=== PATIENT | female | born 1955 | race Hispanic/Latino ===

== ENCOUNTER → 2017-10-23 | Day surgery (SDC) | payer OTHER ==
[~2017-10-23] MED LIST: BIOTIN; CALCIUM + D; COLLAGEN; FENTANYL CITRATE/PF 100MCG/2 ML INJ ONE; GLUCOSAMINE/CHONDRO; HYOSCYAMINE SULFATE 0.5 MG/ML AMP ONE; LIDOCAINE HCL 2% LOCAL INJ 5 ML SDV VIAL INJ ONE; LIPITOR20 MG PO; LISINOPRIL10 MG PO; MAGNESIUM; MELOXICAM7.5 MG PO; MIDAZOLAM HCL 2 MG/2 ML VIAL ONE; MULTIVITAMINS1 EAC8; OSTEO BI-FLEX1 EAC2; PROPOFOL IV EMULSION 10 MG/ML 50 ML VIAL ONE; TYLENOL; VITAMIN B12
--- NOTE | 2017-10-23 19:27 | Operative Report ---
DATE OF PROCEDURE: October 23, 2017 REFERRING PHYSICIAN: Dr. Miquel Saucedo PROCEDURES PERFORMED 1. Esophagogastroduodenoscopy with biopsies. 2. Colonoscopy with polypectomy and biopsies. INDICATIONS FOR EGD: Dyspepsia. INDICATIONS FOR COLONOSCOPY: Colorectal cancer screening, personal history of colon polyps, mother and brother with colon cancer. MEDICATION: Patient was done under MAC. Please see anesthesiologist's note. PROCEDURE: With the patient in the left lateral decubitus position, the flexible fiberoptic Olympus gastroscope was introduced into the esophagus under direct visualization without any difficulty. There was some patchy erythema noted in the distal esophagus. A minute nodule was noted at GE junction that was biopsied. The scope was then advanced with ease into the stomach. Mucosa overlying the antrum and the body revealed some patchy erythema and mild to moderate edema, and biopsies were obtained and sent to stain for H. pylori. Several hyperplastic appearing polyps were noted in the body and some were partially excised with the cold biopsy forceps. The pylorus was of normal contour and shape. It was intubated with ease. The scope was advanced all the way to the 2nd portion of the duodenum. The scope was then withdrawn slowly. Mucosa overlying the proximal 2nd portion and the duodenal bulb appeared to be within normal limits. The scope was then withdrawn back into the stomach and retroflexed. The mucosa overlying the fundus and the cardia appeared to be within normal limits. The scope was then straightened out. The stomach was decompressed. The scope was subsequently withdrawn. Patient tolerated the procedure well. IMPRESSION 1. Mild distal esophagitis. 2. Minute nodule, gastroesophageal junction, biopsied. 3. Gastritis, biopsied. Biopsies sent to stain for Helicobacter pylori. 4. Gastric polyps, body, hyperplastic appearing, some partially excised with the cold biopsy forceps. PLAN: Follow up histology. Initiate Protonix 40 mg 1 p.o. q.a.m. a.c. Patient was then turned around. After adequate lubrication of the anal canal, a flexible fiberoptic Olympus colonoscope was inserted into the rectum with ease and advanced all the way to the cecum. There was some retained fecal material in the right colon, but visualization was good. A minute polyp was hot biopsied from the cecum. The ascending colon grossly appeared to be within normal limits. There was an approximately 1 cm submucosal polypoid lesion suspicious for a lipoma that was biopsied. An additional polyp approximately 8 mm sessile was snared from the transverse colon. The descending grossly appeared to be within normal limits. Diverticular disease was noted to involve the sigmoid colon. One polyp was hot biopsied from the rectum. The scope was then retroflexed into the distal rectum, and the area around the dentate line appeared to be within normal limits. The scope was then straightened out. It was subsequently withdrawn. Patient tolerated the procedure well. IMPRESSION 1. Cecal polyp, hot biopsied. 2. Transverse colon polyp, approximately 1 cm in size, suspicious for lipoma. Biopsies obtained. 3. Transverse colon polyps, snared. 4. Diverticulosis. 5. Rectal polyp, hot biopsied. PLAN: Follow up histology. Initiate high-fiber and low-fat diet. Initiate high-fiber supplement. Patient will need a followup colonoscopy in 2 years. Job#: [id number] cc:MIQUEL SAUCEDO MD
== END | disposition home or self-care (01) ==
LOC: ENDO 09:53
PROVIDERS: ATTEND Internal Medicine Gastroenterology
DX: Z12.11 Encounter for screening for malignant neoplasm of colon (principal); D12.0 Benign neoplasm of cecum; D12.3 Benign neoplasm of transverse colon; K62.1 Rectal polyp; K31.7 Polyp of stomach and duodenum; K29.50 Unspecified chronic gastritis without bleeding; K21.0 Gastro-esophageal reflux disease with esophagitis; K57.30 Diverticulosis of large intestine without perforation or abscess without bleeding; K59.00 Constipation, unspecified; K44.9 Diaphragmatic hernia without obstruction or gangrene; K64.8 Other hemorrhoids; G47.33 Obstructive sleep apnea (adult) (pediatric); I10 Essential (primary) hypertension; E78.00 Pure hypercholesterolemia, unspecified; F41.9 Anxiety disorder, unspecified; Z88.6 Allergy status to analgesic agent; Z01.810 Encounter for preprocedural cardiovascular examination; Z68.39 Body mass index [BMI] 39.0-39.9, adult; Z80.0 Family history of malignant neoplasm of digestive organs
CPT/HCPCS: 43239; 45380; 45384; 45385; 93005; J1980; J2001; 45378

== ENCOUNTER → 2017-12-16 | Outpatient (CLI) | payer OTHER ==
[~2017-12-16] MED LIST changes: -FENTANYL CITRATE/PF 100MCG/2 ML INJ ONE; -HYOSCYAMINE SULFATE 0.5 MG/ML AMP ONE; -LIDOCAINE HCL 2% LOCAL INJ 5 ML SDV VIAL INJ ONE; -MIDAZOLAM HCL 2 MG/2 ML VIAL ONE; -PROPOFOL IV EMULSION 10 MG/ML 50 ML VIAL ONE
== END ==
LOC: MAMMO 09:56
PROVIDERS: ATTEND Internal Medicine
DX: Z12.31 Encounter for screening mammogram for malignant neoplasm of breast (principal)
CPT/HCPCS: 77067

== ENCOUNTER → 2018-05-16 | Outpatient (CLI) | payer OTHER, MEDICARE | LOC: RAD 15:22 | PROVIDERS: ATTEND Internal Medicine | DX: I82.499 Acute embolism and thrombosis of other specified deep vein of unspecified lower extremity (principal) | CPT/HCPCS: 93970 ==

== ENCOUNTER 2018-07-04 05:23 | Inpatient (IN) | payer MEDICARE, OTHER ==
--- NOTE | 2018-07-01 11:41 | Diagnostic Imaging Report ---
EXAMINATION: CHEST 2 VIEWS INDICATION: Pre-op COMPARISON: None FINDINGS: TUBES and LINES: None. LUNGS: Lungs are well inflated. There is a focal patchy opacity in the left lower lung peripherally. There are mild patchy opacities of the left greater than right lung base, likely atelectasis. There is no evidence of lobar pneumonia or pulmonary edema. PLEURA: No pleural effusion or pneumothorax. HEART AND MEDIASTINUM: The cardiomediastinal silhouette is unremarkable. BONES AND SOFT TISSUES: No acute osseous abnormality. Degenerative changes of bilateral shoulders. UPPER ABDOMEN: No free air under the diaphragm. IMPRESSION: No acute radiographic abnormality. Focal patchy opacity in the left lower lung may represent atelectasis. However given the focal appearance, follow-up chest radiograph in 6-8 weeks is recommended to assess for resolution and exclude underlying pulmonary nodule. Signed by: Dr. Shima Echevarria MD on 07/01/2018 11:37 AM
[~2018-07-04] VITALS: Ht 160 cm; Wt 97.1 kg
[~2018-07-04 05:23] MED LIST changes: +FIBER GUMMIES PO; +FISH OIL 1,0001 EAC2 PO; +PANTOPRAZOLE SO40 MG PO; +TRIAMTERENE-HCTZ1 EA PO
--- OUTSIDE RECORDS SUMMARY | 2018-07-04 05:26 | XMS REPORT ---
Author Author [facility] Address Unknown Phone Unavailable Care Team Providers Care Resource Manager Name Role Phone PAUL ALBERTO Unavailable Unavailable MIQUEL SAUCEDO Unavailable Unavailable Problems This patient has no known problems. Allergies, Adverse Reactions, Alerts This patient has no known allergies or adverse reactions. Medications This patient has no known medications. Results Test Description Test Time Test Comments Text Results Atomic Results Result Comments CHEST 2 VIEWS 2018-07-01 11:33:00 [place] [address] Patient Name: NANCY MARAVILLA MR #: [id number] : 1955 Age/Sex: 63/F Req #: [id number] Adm Physician: Ordered by: PAUL ALBERTO MD Report #: [id number] Location: OR Room/Bed: Procedure: [id number] DX/CHEST 2 VIEWS Exam Date: Exam Time: REPORT STATUS: Signed EXAMINATION: CHEST 2 VIEWS INDICATION: Pre-op COMPARISON: None FINDINGS: TUBES and LINES: None. LUNGS: Lungs are well inflated. There is a focal patchy opacity in the left lower lung peripherally. There are mild patchy opacities of the left greater than right lung base, likely atelectasis. There is no evidence of lobar pneumonia or pulmonary edema. PLEURA: No pleural effusion or pneumothorax. HEART AND MEDIASTINUM: The cardiomediastinal silhouette is unremarkable. BONES AND SOFT TISSUES: No acute osseous abnormality. Degenerative changes of bilateral shoulders. UPPER ABDOMEN: No free air under the diaphragm. IMPRESSION: No acute radiographic abnormality. Focal patchy opacity in the left lower lung may represent atelectasis. However given the focal appearance, follow-up chest radiograph in 6-8 weeks is recommended to assess for resolution and exclude underlying pulmonary nodule. Signed by: Dr. Bravo Terrell MD on 07/01/2018 11:37 AM Dictated By: BRAVO TERRELL MD Electro nically Signed By: BRAVO TERRELL MD on 07/01/18 1137 Transcribed By: CHANTAL on 07/01/18 1137 COPY TO: PAUL ALBERTO MD MAMMOGRAPHY DIGITAL SCR BILAT 2017-12-16 10:52:00 [place] [address] Patient Name: NANCY MARAVILLA MR #: [id number] : 1955 Age/Sex: 62/F Req #: [id number] Adm Physician: Ordered by: MIQUEL SAUCEDO MD Report #: [id number] Location: MAMMO Room/Bed: Procedure: [id number] MG/MAMMOGRAPHY DIGITAL SCR BILAT Exam Date: 12/16/17 Exam Time: 1025 REPORT STATUS: Signed #[id number] - MGSCRBIL #BILATERAL DIGITAL SCREENING MAMMOGRAM WITH CAD: 12/16/2017 CLINICAL: Routine screening. Comparison is made to exams dated: 08/20/2016 mammogram and 08/05/2015 mammogram - [facility]. The tissue of both breasts is heterogeneously dense. This may lower the sensitivity of mammography. Current study was also evaluated with a Computer Aided Detection (CAD) system. No significant masses, calcifications, or other findings are seen in either breast. There has been no significant interval change. IMPRESSION: BENIGN There is no mammographic evidence of malignancy. A 1 year screening mammogram is recommended. The patient will be notified by letter of the results. Elza ray/chan:12/21/2017 10:29:53 Smoke Control Supervisor: uSe DE LA FUENTE)(Arpan), [facility] letter sent: Normal Exam Mammogram BI-RADS: 2 Benign Dictated By: ELZA COONEY MD 1029 Transcribed By: CHAN on 12/21/17 1029 COPY TO: MIQUEL SAUCEDO MD
[2018-07-04] MEDS ORDERED: CELECOXIB 200 MG CAP ONE (05:39)
[2018-07-04] MEDS ORDERED: CEFAZOLIN SOD 2 GM/D5W 50ML 50 ML IV ONE (05:40)
[2018-07-04] MEDS ORDERED: GABAPENTIN 300 MG CAP ONE (05:40)
[2018-07-04] MEDS ORDERED: DEXAMETHASONE SOD PHOS 10 MG/1 ML VIAL ONE (05:40)
[2018-07-04] MEDS ORDERED: SODIUM CHLORIDE 0.9% 500ML 500 ML ONE (06:23)
[2018-07-04] MEDS ORDERED: VANCOMYCIN HCL 1,000 MG ONE (06:23)
[2018-07-04] MEDS ORDERED: BACITRACIN 50,000 UNIT VIAL ONE (06:24)
[2018-07-04] MEDS ORDERED: TRANEXAMIC ACID 1,000 MG/10 ML ML ONE (06:24)
[2018-07-04] MEDS ORDERED: BUPIVACAINE 7.5MG/ML /DEXTROSE 82.5MG/ML 2 ML AMP INJ ONE (06:27)
[2018-07-04] MEDS ORDERED: ROPIVACAINE 246.25 MG, EPINEPHRINE HCL 1:1000 1ML 0.5 MG, CLONIDINE HCL 0.08 MG, KETORO... INJ ONE ×5 (06:30)
[2018-07-04] MEDS: SODIUM CHLORIDE 0.9% 1000ML 1,000 ML IV SCH ×2 (09:27→21:47)
[2018-07-04] MEDS ORDERED: DIPHENHYDRAMINE HCL INJ 50 MG/ML VIAL IM/IV PRN (09:30)
[2018-07-04] MEDS ORDERED: ACETAMINOPHEN 650 MG SUPP PR PRN (09:30)
[2018-07-04] MEDS ORDERED: HYDROCODONE/APAP 5MG-325MG TAB PO PRN (09:30)
[2018-07-04] MEDS ORDERED: HYDROCODONE/APAP 7.5MG-325MG 1 EA TAB PO PRN (09:30)
[2018-07-04] MEDS ORDERED: ZOLPIDEM TARTRATE 5 MG TAB PO PRN (09:30)
[2018-07-04] MEDS ORDERED: ONDANSETRON HCL INJ 2MG/ML 2ML 2 MG/ML VIAL IV PRN (09:30)
[2018-07-04] MEDS ORDERED: DOCUSATE SODIUM 100 MG CAP PO PRN (09:30)
[2018-07-04] MEDS ORDERED: KETOROLAC TROMETHAMINE 30 MG/ML VIAL IV PRN ×2 (09:30→13:45)
[2018-07-04] MEDS ORDERED: PROMETHAZINE HCL (IM) 25 MG/ML VIAL INJ PRN (09:30)
--- NOTE | 2018-07-04 10:47 | Diagnostic Imaging Report ---
Exam: Pelvis, frontal view History: Left hip replacement Comparison: None. Findings: See impression Impression: Status post total left hip replacement with intact and appropriately positioned acetabular and femoral components. Subcutaneous gas and overlying skin ernesto partially visualized. No periprosthetic displaced fracture. Advanced degenerative arthrosis of the right hip incidentally noted. Signed by: Dr. Fred Spence M.D. on 07/04/2018 10:43 AM
[2018-07-04 11:00] VITALS: BP 111/68
--- NOTE | 2018-07-04 11:05 | NUR ---
RECIEVED PATIENT TO ROOM AAO X3, UPDATED ON PLAN OF CARE, VOICED UNDERSTANDING, DENIES PAIN, WOUND VAC TO LEFT HIP INTACT, IV INFUSING TO RIGHT WRIST 20 GAUGE, FOOT PUMPS BILATERALLY FEET, BED LOCKED LOW POSITION, CALL LIGHT IN REACH, WILL CONTINUE TO MONITOR.
[2018-07-04 11:26] VITALS: BP 111/68
[2018-07-04] MEDS: ACETAMINOPHEN 1000 MG/100 ML IV SCH ×2 (13:21→18:15)
[2018-07-04] MEDS: CEFAZOLIN SOD 1 GM/NS 50ML 50 ML IV SCH ×2 (13:55→21:47)
[2018-07-04 14:54] VITALS: BP 111/68
--- NOTE | 2018-07-04 16:23 | Consultation ---
DATE OF CONSULTATION: Internal Medicine Consultation HISTORY OF PRESENT ILLNESS: A 63-year-old female with past medical history positive for hypertension, hyperlipidemia, gastroesophageal reflux disease, sleep apnea, obesity, came to the hospital for an elective left total hip arthroplasty due to severe osteoarthritis. Internal medicine consultation requested by Dr. Kenney for management of her medical condition. REVIEW OF SYSTEMS: CARDIOVASCULAR: No chest pain or palpitation. RESPIRATORY: No shortness of breath. No cough. GASTROINTESTINAL: No nausea. No vomiting. No diarrhea. GENITOURINARY: No urinary frequency. No dysuria. PAST MEDICAL HISTORY: Hypertension, hyperlipidemia, gastroesophageal reflux disease, sleep apnea, obesity. SOCIAL HISTORY: She does not smoke. She does not drink. ALLERGIES: ALLERGIC TO CODEINE. PHYSICAL EXAMINATION: HEART: Showed regular rhythm. Normal murmur or added sound. LUNGS: Clear bilaterally. ABDOMEN: Soft. EXTREMITIES: Show incision on the left hip. No evidence of any edema on both lower extremities. FINAL IMPRESSION: 1. Essential hypertension. 2. Hyperlipidemia. 3. Osteoarthritis, status post left total hip arthroplasty. 4. Gastroesophageal reflux disease. 5. Obstructive sleep apnea and obesity. PLAN OF TREATMENT: Continue cefazolin 1 g IV q.8 hours. Continue normal saline at 100 mL/hour. Tylenol 1000 mg q.6 hours as needed. Continue every 6 hours as needed, Zofran 4 mg IV q.4 to 6 hours as needed for vomiting, lisinopril 40 mg daily, Tylenol 650 mg p.o. q.4 hours as needed, Colace 100 mg twice a day, promethazine 12.5 mg q.6 hours as needed, Protonix 40 mg daily, twice a day, [place] 1 tablet q.4 hours as needed for more severe pain, Ambien 5 mg at night p.r.n. for sleep, Dyazide 1 tab daily, Celebrex 200 mg twice a day, continue Lipitor 20 mg daily, Toradol 30 mg IV q.6 hours as needed for severe pain. I am going to order a CBC, BMP. to follow the case along with you. Also, Physical Therapy will be consulted with the restrictions specified by Dr. Kenney. Diet; low-salt, low-cholesterol diet. MD ALICE Curran/GODFREY /[id number]
[2018-07-04 16:31] VITALS: BP 110/62
[2018-07-04] MEDS ORDERED: CELECOXIB 100 MG CAP PO SCH (17:00)
[2018-07-04] MEDS: CELECOXIB 200 MG CAP PO SCH (18:15)
[2018-07-04] MEDS: ASPIRIN 325 MG TAB PO SCH (18:15)
[2018-07-04] MEDS ORDERED: MIDAZOLAM HCL 2 MG/2 ML VIAL ONE (19:34)
[2018-07-04] MEDS ORDERED: FENTANYL CITRATE/PF 100MCG/2 ML INJ ONE (19:34)
[2018-07-04] MEDS ORDERED: PROPOFOL IV EMULSION 10 MG/ML 20 ML VIAL ONE (19:56)
[2018-07-04] MEDS ORDERED: PHENYLEPHRINE HCL 1% 10 MG/ML VIAL ONE (19:56)
[2018-07-04] MEDS ORDERED: EPHEDRINE SULFATE INJ 50 MG/10 ML SYR ONE (19:56)
[2018-07-04] MEDS ORDERED: LIDOCAINE HCL 2% LOCAL INJ 5 ML SDV VIAL INJ ONE (19:56)
[2018-07-04] MEDS ORDERED: ONDANSETRON HCL INJ 2MG/ML 2ML 2 MG/ML VIAL ONE (19:56)
[2018-07-04 20:00] VITALS: BP 130/70
--- NOTE | 2018-07-04 20:00 | NUR ---
pt received. pt assessed. no ss of distress noted. no co pain at time. left hip wound vac cdi. will cont to follow poc. call wu within reach.
[2018-07-04] MEDS ORDERED: ATORVASTATIN 20 MG TAB PO SCH (21:00)
--- NOTE | 2018-07-04 22:00 | NUR ---
assisted pt up to bedside commode and back to bed. no ss of distress noted. call wu within reach.
[2018-07-05] VITALS: BP 103/57
[2018-07-05] MEDS: ACETAMINOPHEN 1000 MG/100 ML IV SCH ×2 (00:24→05:14)
[2018-07-05 04:00] VITALS: BP 101/62
--- NOTE | 2018-07-05 04:08 | NUR ---
pt resting. no ss of distress noted. call wu within reach.
[2018-07-05] MEDS: SODIUM CHLORIDE 0.9% 1000ML 1,000 ML IV SCH (05:14)
[2018-07-05] MEDS: CEFAZOLIN SOD 1 GM/NS 50ML 50 ML IV SCH (06:03)
--- NOTE | 2018-07-05 06:03 | NUR ---
assisted pt up to bedside commode and back to bed. no ss of distress noted. call wu within reach.
[2018-07-05 07:08] LABS: BASOPHILS % 0.1 % (0.0-1.0); HEMATOCRIT 32.7 % (34.2-44.1); HEMOGLOBIN 10.4 g/dL (12.0-16.0); LYMPHOCYTES # (AUTO) 2.1 (1.0-3.2); LYMPHOCYTES % 12.1 % (18.0-39.1); MEAN CORPUSCULAR HEMOGLOBIN 29.1 pg (28-32); MEAN CORPUSCULAR HGB CONC 31.8 g/dL (31-35); MEAN CORPUSCULAR VOLUME 91.6 fL (81-99); MONOCYTES # (AUTO) 1.5 (0.2-0.8); NEUTROPHILS # (AUTO) 13.3 (2.1-6.9); NEUTROPHILS % 78.2 % (38.7-80.0); PLATELET COUNT 294 x10e3/uL (140-360); RED BLOOD COUNT 3.57 x10e6/uL (3.6-5.1); RED CELL DISTRIBUTION WIDTH 15.2 % (11.7-14.4)
[2018-07-05 08:18] VITALS: BP 104/59
[2018-07-05 08:45] LABS: LYMPHOCYTES % (MANUAL) 11 % (19-48); MONOCYTES % (MANUAL) 10 % (3.4-9.0); NEUTROPHILS % (MANUAL) 79 % (40-74)
[2018-07-05] MEDS: CELECOXIB 200 MG CAP PO SCH (09:00)
[2018-07-05] MEDS ORDERED: PANTOPRAZOLE SOD 40 MG TABEC PO SCH (09:00)
[2018-07-05] MEDS ORDERED: TRIAMTERENE/HCTZ 37.5-25 MG TAB PO SCH (09:00)
[2018-07-05] MEDS: ASPIRIN 325 MG TAB PO SCH (09:00)
[2018-07-05] MEDS ORDERED: LISINOPRIL 10 MG TAB PO SCH (09:00)
[2018-07-05] MEDS ORDERED: LISINOPRIL 20 MG TAB PO SCH (09:00)
[2018-07-05] MEDS ORDERED: ATORVASTATIN 20 MG TAB PO SCH (09:00)
[2018-07-05 09:12] LABS: ANION GAP 14.3 mmol/L (8-16); BLOOD UREA NITROGEN 28 mg/dL (7-26); BUN/CREATININE RATIO 32 (6-25); CALCIUM 8.3 mg/dL (8.4-10.2); CARBON DIOXIDE 22 mmol/L (22-29); CHLORIDE 102 mmol/L (98-107); CREATININE, SERUM 0.88 mg/dL (0.57-1.11); EST GLOMERULAR FILTRATION RATE > 60 ML/MIN (60-); GLUCOSE 129 mg/dL (74-118); POTASSIUM 4.3 mmol/L (3.5-5.1); SODIUM 134 mmol/L (136-145)
[2018-07-05] MEDS ORDERED: ASPIRIN325 MG PO (09:23)
[2018-07-05 09:28] VITALS: BP 104/59
[2018-07-05] MEDS ORDERED: ACETAMINOPHEN 1000 MG/100 ML IV PRN (09:30)
--- NOTE | 2018-07-05 09:40 | NUR ---
LAMAR RENDON WITH MD ALBERTO INTO SEE PT, DISCUSSED DISCHARGE INSTRUCTIONS, PT VERBALIZED UNDERSTANDING, PT NOW AMBULATING IN HALLWAY WITH PHYSICAL THERAPY
--- NOTE | 2018-07-05 09:46 | NUR ---
MD ALBERTO INTO SEE PT, DISCUSSED POC
[2018-07-05] MEDS ORDERED: HYDROCODON-ACE1 EA15 PO (11:10)
--- NOTE | 2018-07-05 11:26 | Progress Note ---
DATE: Internal Medicine Progress Note SUBJECTIVE: The patient is doing well. No significant complaint. PHYSICAL EXAMINATION: VITAL SIGNS: Blood pressure is 104/59, temperature 97.2, heart rate 78 per minute, respiratory rate 20 per minute, oxygen saturation 94%. HEART: Show regular rhythm. Normal S1, S2 sound. LUNGS: Clear bilaterally. ABDOMEN: Soft. EXTREMITIES: Show an incision on the left hip. LABORATORY DATA: CBC; white blood count 16,970, hemoglobin 10.4, hematocrit 32.7, platelet count 294,000. Chemistries pending. IMPRESSION: 1. Status post left hip arthroplasty. 2. Hypertension. 3. Hyperlipidemia. 4. Leukocytosis. 5. Gastroesophageal reflux disease. 6. Sleep apnea. 7. Obesity. PLAN OF TREATMENT: We are going to repeat a CBC tomorrow again due to the elevated white blood count. I am going to continue with physical, occupational therapy. Continue Tylenol 1000 mg every 6 hours IV or 650 mg q.4 hours as needed for pain or fever, [place] q.4 hours as needed, Ambien 5 mg at night p.r.n. for sleep, Toradol 30 mg IV q.6 hours as needed and Celebrex 200 mg twice a day, Lipitor 20 mg daily, Benadryl 12.5 mg IV q.6 hours as needed, Zofran 4 mg IV q.6 hours as needed, lisinopril 40 mg daily, Colace 100 mg twice a day, promethazine 12.5 mg q.6 hours as needed, Protonix 40 mg daily. MD ALICE Curran/GODFREY /[id number]
[2018-07-05 12:01] VITALS: BP 102/61
[2018-07-05] MEDS ORDERED: ONDANSETRON HCL 4 MG ORAL DISINTEGRATING TAB PO PRN (12:30)
--- NOTE | 2018-07-05 13:31 | NUR ---
DISCHARGE INSTRUCTIONS REVIEWED, PT VERBALIZED UNDERSTANDING, AWAITING RIDE
--- NOTE | 2018-07-05 14:26 | NUR ---
WHEELED OFF UNIT VIA WC FOR DISCHARGE, NO CHANGE IN CONDITION
--- NOTE | 2018-07-05 16:18 | NUR ---
Met with pt and family at bedside. Pt signed choice letter for HH per Dr. Kenney's office. [facility] and [facility] already delivered and is in her room. [facility] [phone] to follow her. BENJIE cofirmed with Lisa at [facility]. They are scheduled to see her tomorrow.
--- NOTE | 2018-07-05 16:28 | Operative Report ---
DATE OF PROCEDURE: 07/04/2018 SURGEON: Fred Kenney MD NETWORK SYSTEMS ADMINISTRATOR: Maxwell Toussaint, certified PA. PREOPERATIVE DIAGNOSIS: Osteoarthritis, left hip. POSTOPERATIVE DIAGNOSIS: Osteoarthritis, left hip. PROCEDURE: Left total hip arthroplasty. INDICATIONS: The patient is a 63-year-old lady with severe arthritis in both hips. The hips are virtually ankylosed. The findings and options have been discussed. The patient presented to me wanting to schedule hip replacement surgery. She would like to have the left side done first. The risks and benefits of the procedure have been discussed in detail. The implants, the hospital stay and the recovery have all been explained. She states she understands and wishes to proceed. PROCEDURE IN DETAIL: The patient was brought to the operating room and given a general anesthetic. She received prophylactic antibiotics and tranexamic acid in the holding area. She was positioned in the right lateral decubitus position. Due to her body mass index of nearly 40, added time and personnel was necessary for positioning. The hip was also quite stiff making prepping and draping more challenging. A preoperative time-out was performed. A posterior approach was then made to the left hip. Hemostasis was obtained with electrocautery. A deep Charnley self-retaining retractor was placed. Exposure of the posterior aspect of the hip was challenging due to her external rotation contracture. The posterior capsule and short external rotators were released. Attempts were made to reduce the hip. As mentioned earlier, the hip was virtually ankylosed. Removal of a large posterior osteophyte was necessary to dislocate the hip. An oscillating saw was used to resect the femoral head. Extensive complete loss of articular cartilage was noted. Acetabular retractors were placed. Again, massive marginal osteophytes were encountered. Additional soft tissue releases were necessary to provide appropriate exposure. The true floor of the acetabulum was ultimately established using a 46-mm reamer. The socket was then carefully reamed to 55 mm. A Ania Biomet OsseoTi 56 mm outer diameter socket was then seated into place. Positioning was referenced off the remnant of landmarks and was challenging. Fixation was augmented with two cancellous screws placed into the ilium. The hip had been thoroughly irrigated on several occasions during this portion of the case with a shower tip pulsatile lavage. Throughout the case, as well, a diluted mixture of polymyxin and vancomycin spray was used in the wound. A highly crosslinked polyethylene liner with a 36 mm inner diameter was then impacted into place. Care was taken to make sure that there was no evidence of soft tissue interposition. Additional inferior, anterior and superior marginal osteophytes were removed. The socket was then packed with moistly soaked lap sponge. Attention was directed towards the proximal femur. This also was quite severely contracted. I released the iliopsoas. A taper pin reamer and box cutting broach were used to establish entry to the femoral canal. The Ania [employer] Taperloc broaches were then impacted. A size 12 stem had appropriate canal fill and rotational stability. Trial reductions were performed. I elected to go to a high offset stem. The hip had been medialized quite a bit. There was still mild anterior impingement, but the hip was stable in 90 degrees of flexion and 20 degrees of internal rotation. An intraoperative x-ray was taken, which confirmed satisfactory buddhism of limb length and positioning of the socket. The trial stem was then removed and a Ania [employer]omet size 12 high offset Taperloc stem was seated. A standard ceramic 36 mm head was then seated onto the stem. A final reduction was performed. There were no posterior capsule or short external rotators available for repair. These were far too contracted. The wound was further irrigated with a shower tip pulsatile lavage. A 500 mg of vancomycin powder was sprinkled into the wound. The tensor fascia and gluteal fascia were closed with interrupted #2 Ethibond. The skin was closed with subcuticular Vicryl and ernesto. A sterile Prevena wound VAC was used due to the abundance of subcutaneous adipose tissue. Once this was applied, the patient was returned to the supine position. She was transported to the recovery room in stable condition. Estimated blood loss was approximately 150 mL. All needle and sponge counts were correct. Fred Kenney MD DR/GODFREY /[id number]
== END 2018-07-05 14:01 | disposition home health service (06) | DRG 470 ==
LOC: OR 05:23 → PACU V 09:30 → MED/SURG 11:03
PROVIDERS: ADMIT Specialist; ATTEND Specialist
PROC: 0SRB04A Replacement of Left Hip Joint with Ceramic on Polyethylene Synthetic Substitute, Uncemented, Open Approach (ICD-10-PCS; principal; 2018-07-04 07:30)
DX: M16.12 Unilateral primary osteoarthritis, left hip (principal); I10 Essential (primary) hypertension; E78.5 Hyperlipidemia, unspecified; K21.9 Gastro-esophageal reflux disease without esophagitis; D72.829 Elevated white blood cell count, unspecified; G47.33 Obstructive sleep apnea (adult) (pediatric); E66.9 Obesity, unspecified; Z68.37 Body mass index [BMI] 37.0-37.9, adult
CPT/HCPCS: 36415; 71046; 72170; 80048; 85025; 86850; 86900; 86920; 93005; 96367; J0171; J0690; J1100; J1885; J2001; J2250; J2370; J2405; J2795; J3370; J7030; J7040

== ENCOUNTER → 2019-03-25 | Day surgery (SDC) | payer MEDICARE, OTHER ==
[2019-03-22 11:26] LABS: BASOPHILS % 0.2 % (0.0-1.0); EOSINOPHILS # (AUTO) 0.1 (0.0-0.4); EOSINOPHILS % 0.9 % (0.0-6.0); HEMATOCRIT 38.3 % (34.2-44.1); HEMOGLOBIN 12.3 g/dL (12.0-16.0); LYMPHOCYTES # (AUTO) 2.3 (1.0-3.2); LYMPHOCYTES % 26.8 % (18.0-39.1); MEAN CORPUSCULAR HEMOGLOBIN 28.7 pg (28-32); MEAN CORPUSCULAR HGB CONC 32.1 g/dL (31-35); MEAN CORPUSCULAR VOLUME 89.5 fL (81-99); MONOCYTES # (AUTO) 0.6 (0.2-0.8); MONOCYTES % 7.4 % (4.4-11.3); NEUTROPHILS # (AUTO) 5.6 (2.1-6.9); NEUTROPHILS % 64.2 % (38.7-80.0); PLATELET COUNT 269 x10e3/uL (140-360); RED BLOOD COUNT 4.28 x10e6/uL (3.6-5.1); RED CELL DISTRIBUTION WIDTH 14.3 % (11.7-14.4)
[~2019-03-25] MED LIST changes: +ASPIRIN325 MG PO; +ATORVASTATIN CA20 MG PO; +HYDROCODON-ACE1 EA15 PO; +HYOSCYAMINE 0.125 MG TAB ONE; +PROPOFOL IV EMULSION 10 MG/ML 50 ML VIAL ONE
[2019-03-25 10:25] VITALS: BP 122/84
--- NOTE | 2019-03-25 17:39 | Operative Report ---
DATE OF PROCEDURE: 03/25/2019 SURGEON: Adrian Thapa MD PROCEDURES: Colonoscopy and polypectomy. INDICATIONS FOR COLONOSCOPY: Surveillance colonoscopy, personal history of colon polyps. MEDICATIONS: The patient was done under MAC. Please see anesthesiologist's note. DESCRIPTION OF PROCEDURE: With the patient in left lateral decubitus position, flexible fiberoptic Olympus colonoscope was inserted into the rectum with ease and advanced all the way to the cecum. It was then withdrawn slowly. Mucosa overlying the cecum and ascending colon appeared to be within normal limits. One polyp was removed per hot snare polypectomy from the transverse colon. Scattered diverticular disease was noted pretty much throughout, but it was more prominent than the left colon. The mucosa overlying the descending and the sigmoid other than for diverticulosis appeared to be within normal limits. The rectum grossly appeared to be within normal limits. The scope was then retroflexed into the distal rectum and small internal hemorrhoids were noted, none of which was actively bleeding. The scope was then straightened out. It was subsequently withdrawn. The patient tolerated the procedure well. IMPRESSION: 1. Transverse colon polyp, hot snare. 2. Diverticulosis. 3. Internal hemorrhoids, none actively bleeding. PLAN: Follow up histology. Initiate high-fiber, low-fat diet. Initiate high-fiber supplement. The patient might benefit from a followup colonoscopy in 5 years Adrian Thapa MD [facility]/GODFREY /[id number] cc: Serjio Boothe MD
== END | disposition home or self-care (01) ==
LOC: OR 06:09
PROVIDERS: ATTEND Internal Medicine Gastroenterology
DX: Z09 Encounter for follow-up examination after completed treatment for conditions other than malignant neoplasm (principal); D12.3 Benign neoplasm of transverse colon; K57.30 Diverticulosis of large intestine without perforation or abscess without bleeding; K64.8 Other hemorrhoids; K44.9 Diaphragmatic hernia without obstruction or gangrene; G47.33 Obstructive sleep apnea (adult) (pediatric); I10 Essential (primary) hypertension; E78.5 Hyperlipidemia, unspecified; M19.90 Unspecified osteoarthritis, unspecified site; Z88.6 Allergy status to analgesic agent; Z01.810 Encounter for preprocedural cardiovascular examination; Z01.812 Encounter for preprocedural laboratory examination; Z83.71 Family history of colonic polyps
CPT/HCPCS: 36415; 45385; 85025; 88305; 93005; J2704

== ENCOUNTER 2019-06-26 05:27 | Observation (INO) | payer MEDICARE, OTHER ==
--- NOTE | 2019-06-23 11:57 | Diagnostic Imaging Report ---
EXAMINATION: CHEST 2 VIEWS INDICATION: Pre-operative COMPARISON: Chest radiograph 07/01/2018 FINDINGS: LINES/TUBES:None LUNGS:The lungs are well-inflated. No focal consolidation or pulmonary edema. Mild bibasilar subsegmental atelectasis. PLEURA:No pleural effusion or pneumothorax. MEDIASTINUM:The cardiomediastinal silhouette appears normal in size and shape. BONES/SOFT TISSUES:No acute osseous injury. ABDOMEN:No free air under the diaphragm. IMPRESSION: No focal pneumonia or pulmonary edema. Signed by: Santhosh Castro MD on 06/23/2019 11:54 AM
[2019-06-23 11:59] LABS: BASOPHILS # (AUTO) 0.1 (0.0-0.1); BASOPHILS % 0.8 % (0.0-1.0); EOSINOPHILS # (AUTO) 0.3 (0.0-0.4); EOSINOPHILS % 3.5 % (0.0-6.0); HEMATOCRIT 38.7 % (34.2-44.1); HEMOGLOBIN 12.3 g/dL (12.0-16.0); LYMPHOCYTES # (AUTO) 2.4 (1.0-3.2); LYMPHOCYTES % 31.4 % (18.0-39.1); MEAN CORPUSCULAR HEMOGLOBIN 28.8 pg (28-32); MEAN CORPUSCULAR HGB CONC 31.8 g/dL (31-35); MEAN CORPUSCULAR VOLUME 90.6 fL (81-99); MONOCYTES # (AUTO) 0.7 (0.2-0.8); MONOCYTES % 8.6 % (4.4-11.3); NEUTROPHILS # (AUTO) 4.3 (2.1-6.9); NEUTROPHILS % 55.1 % (38.7-80.0); PLATELET COUNT 362 x10e3/uL (140-360); RED BLOOD COUNT 4.27 x10e6/uL (3.6-5.1); RED CELL DISTRIBUTION WIDTH 14.6 % (11.7-14.4)
[2019-06-23 12:15] LABS: ANION GAP 15.4 mmol/L (8-16); CALCIUM 10.1 mg/dL (8.4-10.2); CREATININE, SERUM 1.33 mg/dL (0.57-1.11); POTASSIUM 4.4 mmol/L (3.5-5.1)
[~2019-06-26] VITALS: Ht 160 cm; Wt 102.1 kg
[~2019-06-26 05:27] MED LIST changes: +BENEFIBER PO; +BENEFIBER1 EAC1; +BIOTIN1 MG PO; +COLACE100 MG PO; +FENOFIBRATE145 MG PO; -HYOSCYAMINE 0.125 MG TAB ONE; +MULTI-VITAMIN1 EACH PO; +OSTEO BI-FLEX1 EAC2 PO; -PROPOFOL IV EMULSION 10 MG/ML 50 ML VIAL ONE; +VITAMIN B122500 MCG PO
[2019-06-26] MEDS ORDERED: CEFAZOLIN SOD 1 GM/NS 50ML 100 ML IV ONE (06:07)
[2019-06-26] MEDS ORDERED: SODIUM CHLORIDE 0.9% 500ML 500 ML ONE (06:11)
[2019-06-26] MEDS ORDERED: TRANEXAMIC ACID 1,000 MG/10 ML ML ONE (06:11)
[2019-06-26] MEDS ORDERED: VANCOMYCIN HCL 1,000 MG ONE (06:11)
[2019-06-26] MEDS ORDERED: BACITRACIN 50,000 UNIT VIAL ONE (06:12)
[2019-06-26] MEDS ORDERED: CELECOXIB 200 MG CAP ONE (06:24)
[2019-06-26] MEDS ORDERED: DEXAMETHASONE SOD PHOS 10 MG/1 ML VIAL ONE (06:24)
[2019-06-26] MEDS ORDERED: GABAPENTIN 300 MG CAP ONE (06:25)
[2019-06-26] MEDS ORDERED: BUPIVACAINE 7.5MG/ML /DEXTROSE 82.5MG/ML 2 ML AMP INJ ONE (07:19)
[2019-06-26] MEDS ORDERED: ROPIVACAINE 246.25 MG, EPINEPHRINE HCL 1:1000 1ML 0.5 MG, CLONIDINE HCL 0.08 MG, KETORO... INJ ONE ×5 (08:00)
[2019-06-26] MEDS: SODIUM CHLORIDE 0.9% 1000ML 1,000 ML IV SCH ×2 (08:46→13:25)
[2019-06-26] MEDS ORDERED: DIPHENHYDRAMINE HCL INJ 50 MG/ML VIAL IM/IV PRN (09:00)
[2019-06-26] MEDS ORDERED: HYDROCODONE/APAP 5MG-325MG TAB PO PRN (09:00)
[2019-06-26] MEDS ORDERED: ACETAMINOPHEN 650 MG SUPP PR PRN (09:00)
[2019-06-26] MEDS ORDERED: CELECOXIB 100 MG CAP PO SCH (09:00)
[2019-06-26] MEDS: ASPIRIN 325 MG TAB PO SCH ×2 (09:00→16:35)
[2019-06-26] MEDS ORDERED: HYDROCODONE/APAP 7.5MG-325MG 1 EA TAB PO PRN (09:00)
[2019-06-26] MEDS ORDERED: PROMETHAZINE HCL (IM) 25 MG/ML VIAL IM PRN (09:00)
[2019-06-26] MEDS ORDERED: DOCUSATE SODIUM 100 MG CAP PO PRN (09:00)
[2019-06-26] MEDS ORDERED: ONDANSETRON HCL INJ 2MG/ML 2ML 2 MG/ML VIAL IV PRN (09:00)
[2019-06-26] MEDS ORDERED: KETOROLAC TROMETHAMINE 30 MG/ML VIAL IV PRN (09:00)
--- NOTE | 2019-06-26 10:16 | Diagnostic Imaging Report ---
EXAMINATION: PELVIS AP 1-2 VIEWS INDICATION: Postoperative COMPARISON: None FINDINGS: Portable AP view of the pelvis demonstrate immediate postoperative findings of right total hip replacement. Alignment is anatomic. No unexpected fracture. Small amount of postoperative subcutaneous soft tissue emphysema. Surgical skin ernesto in place. Unchanged appearance of prior left total hip replacement without evidence of hardware consultation. IMPRESSION: Expected postoperative findings and anatomic alignment status post interval right total hip replacement. Unchanged appearance of left total hip replacement. Signed by: Santhosh Castro MD on 06/26/2019 10:13 AM
[2019-06-26 10:45] VITALS: BP 101/56
--- NOTE | 2019-06-26 10:45 | NUR ---
Received patient lying in bed with eyes open. Right hip post surgical with aquacel dressing intact, no bleeding noted. BLE no sensation at this time as patient had spinal block during surgery per reporting nurse in PACU. Denies pain at this time. Ice pack to right hip in placed. Call light in reach.
[2019-06-26 10:50] VITALS: BP 101/56
[2019-06-26] MEDS ORDERED: PROPOFOL IV EMULSION 10 MG/ML 50 ML VIAL ONE (10:57)
[2019-06-26] MEDS: CEFAZOLIN SOD 1 GM/NS 50ML 50 ML IV SCH ×2 (13:25→21:56)
[2019-06-26 16:00] VITALS: BP 122/67
--- NOTE | 2019-06-26 16:07 | NUR ---
Discharge instruction given about chronic pain and SOB. Educational packet provided. Verbalized understanding. Patient is given instruction of putting pressure on right upper arm PICC site in case of bleeding. Verbalized understanding. Transported patient via wheelchair with all personal belongings. Addendum: 06/26/19 at 1628 by Ora Drew RN Notes error. Wrong patient.
--- NOTE | 2019-06-26 16:35 | Operative Report ---
DATE OF PROCEDURE: 06/26/2019 SURGEON: Fred Kenney MD ASSOCIATE AUTOMATION ENGINEER: Maxwell Toussaint, certified PA. PREOPERATIVE DIAGNOSIS: Osteoarthritis, right hip. POSTOPERATIVE DIAGNOSIS: Osteoarthritis, right hip. PROCEDURE: Right total hip arthroplasty. INDICATIONS: The patient is a 64-year-old lady, who has end-stage arthritis of her right hip. She has failed conservative management and would like to proceed with a right total hip replacement. The risks and benefits of the procedure have been discussed. She is familiar with the procedure, having had her left hip replaced. All of her questions have been answered. She states she understands and wishes to proceed. DESCRIPTION OF PROCEDURE: The patient was brought to the operating room and given a spinal anesthetic. She was positioned in the left lateral decubitus position. Her right hip was prepped and draped in a sterile manner. A preoperative time-out was performed. A posterior approach was made to the right hip. Care was taken to avoid injury to the sciatic nerve. Hemostasis was obtained with electrocautery. A self-retaining Charnley retractor was placed. There was quite significant adipose tissue. The posterior capsule was carefully exposed and released. Further hemostasis was obtained with electrocautery. An oscillating saw was used to resect the femoral head. Complete loss of articular cartilage was noted. Acetabular retractors were carefully placed. Additional releases were performed for good visualization. Labral remnants and marginal osteophytes were removed. The true floor of the acetabulum was established with a 46 mm reamer. The socket was then sequentially reamed to 55 mm. This accomplished bleeding hemispherical cancellous bone. A Ania Biomet OsseoTi socket with a 56 mm inner diameter was impacted into place. The hip was thoroughly irrigated on several occasions during this portion of the case with a shower tip pulsatile lavage. Additional irrigation was performed with a spray mixture of diluted polymyxin and vancomycin spray. Fixation of the socket was augmented with a single 20 mm cancellous screw placed into the ilium. A highly cross-linked polyethylene liner was then seated into place. Care was taken to make sure that there was no evidence of soft tissue interposition. The socket was then packed with a moistly soaked lap sponge. Attention was directed towards the proximal femur. A box cutting osteotome and taper pin reamer was used to establish entry to the femoral canal. The Ania [employer]omet Taperloc broaches were impacted. A size 11 stem had good canal fill and stability. A trial reduction was performed. We elected to use a standard neck on a 36 mm head. This was similar to the opposite side. The hip was put through a full arc of motion and noted to have good stability. The hip was dislocated and the trial components were removed. The hip was further irrigated with a shower tip pulsatile lavage. The implant was seated into the femoral canal. The femoral head was seated onto a clean and dry stem. A final reduction was performed. The hip was further irrigated and then 500 mg of vancomycin powder was sprinkled into the deep wound. A 100 mL premixed pericapsular LANDEN injection was placed into the surrounding soft tissue. The posterior capsule was closed with interrupted #2 Ethibond. The fascia was closed with interrupted #2 Ethibond. The skin was closed with subcuticular Vicryl and ernesto. A sterile Aquacel bandage was applied. The patient was returned to the supine position and transported to the recovery room in stable condition. Estimated blood loss was 100 mL. All needle and sponge counts were correct. Fred Kenney MD DR/GODFREY /[id number]
[2019-06-26] MEDS ORDERED: CELECOXIB 200 MG CAP PO SCH (17:00)
[2019-06-26] MEDS ORDERED: FENTANYL CITRATE/PF 100MCG/2 ML INJ ONE (17:34)
[2019-06-26] MEDS ORDERED: MIDAZOLAM HCL 2 MG/2 ML VIAL ONE (17:34)
--- NOTE | 2019-06-26 17:52 | Consultation ---
DATE OF CONSULTATION: Internal Medicine Consultation SUBJECTIVE: The patient is a 64-year-old female with past medical history positive for hypertension, hypercholesteremia, hypertriglyceridemia, came here to the hospital due to right hip pain. She underwent right total hip arthroplasty by Dr. Kenney. Internal medicine consultation requested by Dr. Kenney for management of her medical conditions. REVIEW OF SYSTEMS: CARDIOVASCULAR: No chest pain or palpitation. RESPIRATORY: No shortness of breath. No cough. GASTROINTESTINAL: No nausea or vomiting. No diarrhea. GENITOURINARY: No urinary frequency or dysuria. ALLERGIES: SHE IS ALLERGIC TO CODEINE. PAST MEDICAL HISTORY: Hypertension, hyperlipidemia. SOCIAL HISTORY: She does not smoke. She does not drink. PHYSICAL EXAMINATION: VITAL SIGNS: Temperature is 97.2, heart rate 81 per minute, respiratory rate 18 per minute, blood pressure 101/56, oxygen saturation 97%. HEART: Showed regular rhythm. Normal S1 and S2 sound. LUNGS: Clear bilaterally. ABDOMEN: Soft. EXTREMITIES: Show the right hip incision. LABORATORY DATA: A pelvis x-ray done today showed expected postoperative findings, anatomic alignment, status post interval right total hip replacement, unchanged in appearance of the left total hip replacement. Also, she had a chest x-ray done, which showed no focal pneumonia or pulmonary edema. LABORATORY DATA: On the blood work, we have a CBC; white blood count 7.78, hemoglobin 12.3, hematocrit 38.7, and platelet count 362,000. On the BMP; sodium 142, potassium 4.4, chloride 104, CO2 27, BUN 21, creatinine 1.33, glucose 101, calcium 10.1. FINAL IMPRESSION: 1. Hypertension with hypertensive nephropathy. 2. Right hip osteoarthritis. 3. Hypercholesterolemia. 4. Chronic renal failure stage 3, most likely secondary to hypertensive nephropathy. PLAN OF TREATMENT: We are going to continue Lipitor 20 mg daily, Colace 100 mg daily, fenofibrate 145 mg daily, Prinivil 40 mg daily. We are going to stop the meloxicam. We are going to discontinue the Maxzide also. Serjio Boothe MD LAS/MODL /[id number]
--- NOTE | 2019-06-26 18:55 | NUR ---
RECEIVED REPORT FROM DAY RN. RESPIRATIONS EVEN AND UNLABORED. PT SITTING IN SEMI-FOWLERS POSITION IN BED. S/P RT TOTAL HIP. ABDUCTOR PILLOW IN PLACE. RT HIP DRESSING AQUACELE DRY AND INTACT. PT IS ALERT AND ORIENTED X3. FOOT PUMPS ON. RT PIV - 20G- SITE HEALTHY. NS INFUSING AT 75 ML/HR.PT DENIES PAIN.BED LOCKED AND IN LOW POSITION. CALL LIGHT WITHIN REACH.
--- NOTE | 2019-06-26 18:55 | NUR ---
Report given to shift superintendent caustic cresylate. Respiration even and unlabored without SOB. Call light in reach.
[2019-06-26 20:09] VITALS: BP 99/60
[2019-06-26 21:00] VITALS: BP 99/60
[2019-06-26] MEDS ORDERED: ZOLPIDEM TARTRATE 5 MG TAB PO PRN (21:00)
[2019-06-26] MEDS ORDERED: ATORVASTATIN 20 MG TAB PO SCH (21:00)
[2019-06-27 00:10] VITALS: BP 103/67
[2019-06-27 04:29] VITALS: BP 97/56
[2019-06-27] MEDS: CEFAZOLIN SOD 1 GM/NS 50ML 50 ML IV SCH (05:54)
[2019-06-27] MEDS: SODIUM CHLORIDE 0.9% 1000ML 1,000 ML IV SCH (05:54)
[2019-06-27 05:57] LABS: BASOPHILS % 0.2 % (0.0-1.0); HEMATOCRIT 29.1 % (34.2-44.1); HEMOGLOBIN 9.1 g/dL (12.0-16.0); LYMPHOCYTES # (AUTO) 1.7 (1.0-3.2); LYMPHOCYTES % 13.2 % (18.0-39.1); MEAN CORPUSCULAR HEMOGLOBIN 28.5 pg (28-32); MEAN CORPUSCULAR HGB CONC 31.3 g/dL (31-35); MEAN CORPUSCULAR VOLUME 91.2 fL (81-99); MONOCYTES # (AUTO) 1.2 (0.2-0.8); MONOCYTES % 9.6 % (4.4-11.3); NEUTROPHILS # (AUTO) 9.6 (2.1-6.9); NEUTROPHILS % 76.4 % (38.7-80.0); PLATELET COUNT 257 x10e3/uL (140-360); RED BLOOD COUNT 3.19 x10e6/uL (3.6-5.1); RED CELL DISTRIBUTION WIDTH 14.4 % (11.7-14.4)
[2019-06-27 06:21] LABS: ANION GAP 9.1 mmol/L (8-16); CALCIUM 8.3 mg/dL (8.4-10.2); CREATININE, SERUM 1.18 mg/dL (0.57-1.11); POTASSIUM 5.1 mmol/L (3.5-5.1)
[2019-06-27 07:43] VITALS: BP 108/84
[2019-06-27 07:51] VITALS: BP 108/65
[2019-06-27] MEDS: ASPIRIN 325 MG TAB PO SCH (07:58)
--- NOTE | 2019-06-27 08:12 | NUR ---
DR LIU OFFICE PREARRANGED FOLLOWING DISCHARGE PLAN OF:RETURNING HOME [facility] WITH [facility] CONFIRMED WITH RAEGAN [phone] STATES ALREADY HAS EQUIPMENT CALLED DANIEL AT [facility] AND LET HER KNOW [phone] PHILLIP SIGNED AND ON CHART COPY LEFT WITH PATIENT GAVE CARD FOR QUESTIONS AND OR CONCERNS.
[2019-06-27] MEDS ORDERED: TRIAMTERENE/HCTZ 37.5-25 MG TAB PO SCH (09:00)
[2019-06-27] MEDS ORDERED: LISINOPRIL 10 MG TAB PO SCH (09:00)
[2019-06-27] MEDS ORDERED: FENOFIBRATE 145 MG TAB PO SCH (09:00)
[2019-06-27] MEDS ORDERED: MELOXICAM 7.5 MG TAB PO SCH (09:00)
[2019-06-27] MEDS ORDERED: (Glucosamine/D3/Boswellia Serra (Osteo Bi-Flex Caplet) 1 TAB) PO SCH (09:00)
[2019-06-27] MEDS ORDERED: DOCUSATE SODIUM 100 MG CAP PO SCH (09:00)
[2019-06-27] MEDS ORDERED: MULTIVITAMINS/MINERALS TAB PO SCH (09:00)
[2019-06-27] MEDS ORDERED: BENEFIBER PO SCH (09:00)
[2019-06-27] MEDS ORDERED: LISINOPRIL 20 MG TAB PO SCH (09:00)
[2019-06-27] MEDS ORDERED: ACETAMINOPHEN 1000 MG/100 ML IV PRN (09:00)
--- NOTE | 2019-06-27 11:10 | NUR ---
Patient discharged. IV removed, dressing applied & bleeding controlled. Patient and son received discharge instructions with no questions. Patient aware of date for follow up appointment. Patient also instructed to pick up attendant her medications that were already called in to her pharmacy. patient wheeled off unit in stable condition to son's personal vehicle with all belongings.
== END 2019-06-27 11:24 | disposition home health service (06) ==
LOC: OR 05:27 → PACU V 08:49 → MED/SURG 10:41
PROVIDERS: ADMIT Specialist; ATTEND Specialist
DX: M16.0 Bilateral primary osteoarthritis of hip (principal); M19.032 Primary osteoarthritis, left wrist; G56.02 Carpal tunnel syndrome, left upper limb; M47.898 Other spondylosis, sacral and sacrococcygeal region; G47.33 Obstructive sleep apnea (adult) (pediatric)
CPT/HCPCS: 27130; C1776; 36415; 71046; 72170; 80048; 85025; 86850; 86900; 86920; 93005; C1713; C1734; G0378; J0171; J0690; J1100; J1885; J2250; J2795; J3010; J3370; J7030; J7040

== ENCOUNTER → 2019-10-05 | Outpatient (CLI) | payer MEDICARE, OTHER ==
--- NOTE | 2019-10-05 15:19 | Diagnostic Imaging Report ---
EXAM: US ABDOMEN COMPLETE DATE: 10/05/2019 2:17 PM INDICATION: Elevated liver enzymes COMPARISON: None TECHNIQUE: Transverse and longitudinal pimentel scale and color doppler sonographic images of the upper abdomen were obtained. FINDINGS: LIVER 14.6 cm in the right midclavicular line. Increased echogenicity of the liver with normal contour, no masses. SPLEEN 12.1 cm in maximum diameter. Normal echogenicity, no masses. GALLBLADDER Status post cholecystectomy. BILE DUCTS No intra nor extra-hepatic biliary dilation. Common bile duct measures 5mm PANCREAS: Visualized portions are normal. RIGHT KIDNEY: 11.8 cm Echogenicity: Normal Collecting System: No hydronephrosis Stones: None Cyst/Mass: None LEFT KIDNEY: 10.8 cm Echogenicity: Normal Collecting System: No hydronephrosis Stones: None Cyst/Mass: None VESSELS: Aorta: Visualized portions are within normal size limits Inferior Vena Cava: Visualized portions are normal Main Portal Vein: 1.3 cm, normal size with hepatopetal flow. FREE FLUID: None IMPRESSION: Diffuse hepatic steatosis. Status post cholecystectomy. Signed by: Santhosh Castro MD on 10/05/2019 3:16 PM
== END ==
LOC: US 14:03
PROVIDERS: ATTEND Internal Medicine
DX: R74.8 Abnormal levels of other serum enzymes (principal)
CPT/HCPCS: 76700

== ENCOUNTER → 2020-08-15 | Outpatient (CLI) | payer MEDICARE, OTHER ==
[~2020-08-15] MED LIST changes: +IOPAMIDOL 370 MG/ML 200 ML INFUS..BTL INJ ONE; +SODIUM CHLORIDE 0.9% 50ML 50 ML ONE
[2020-08-15 08:06] LABS: CREATININE, SERUM 0.98 mg/dL (0.57-1.11)
== END ==
LOC: CT 07:20
PROVIDERS: ATTEND Internal Medicine
DX: Z84.1 Family history of disorders of kidney and ureter (principal)
CPT/HCPCS: 36415; 74177; 82565; 84520; Q9967

== ENCOUNTER → 2020-09-28 | Day surgery (SDC) | payer MEDICARE, OTHER ==
[2020-09-25 09:02] LABS: BASOPHILS % 0.4 % (0.0-1.0); EOSINOPHILS # (AUTO) 0.1 (0.0-0.4); EOSINOPHILS % 0.9 % (0.0-6.0); HEMATOCRIT 41.8 % (34.2-44.1); HEMOGLOBIN 13.3 g/dL (12.0-16.0); LYMPHOCYTES # (AUTO) 2.9 (1.0-3.2); LYMPHOCYTES % 31.6 % (18.0-39.1); MEAN CORPUSCULAR HEMOGLOBIN 27.8 pg (28-32); MEAN CORPUSCULAR HGB CONC 31.8 g/dL (31-35); MEAN CORPUSCULAR VOLUME 87.4 fL (81-99); MONOCYTES # (AUTO) 0.7 (0.2-0.8); MONOCYTES % 7.1 % (4.4-11.3); NEUTROPHILS # (AUTO) 5.5 (2.1-6.9); NEUTROPHILS % 59.7 % (38.7-80.0); PLATELET COUNT 305 x10e3/uL (140-360); RED BLOOD COUNT 4.78 x10e6/uL (3.6-5.1); RED CELL DISTRIBUTION WIDTH 14.9 % (11.7-14.4)
[~2020-09-28] MED LIST changes: +ATROPINE SULFATE 1 MG/ML VIAL ONE; +FERROUS SULFAT325 MG PO; -IOPAMIDOL 370 MG/ML 200 ML INFUS..BTL INJ ONE; +POVIDONE IODINE 0.05% 0.05 % ML PO ONE; -SODIUM CHLORIDE 0.9% 50ML 50 ML ONE; +VITAMIN D310 MCG PO
[2020-09-28 14:00] VITALS: BP 133/83
== END | disposition home or self-care (01) ==
LOC: OR 08:12
PROVIDERS: ATTEND Internal Medicine Gastroenterology
DX: K44.9 Diaphragmatic hernia without obstruction or gangrene (principal); K31.7 Polyp of stomach and duodenum; K57.30 Diverticulosis of large intestine without perforation or abscess without bleeding; K63.5 Polyp of colon; K64.8 Other hemorrhoids; K22.8 Other specified diseases of esophagus; K29.70 Gastritis, unspecified, without bleeding; I10 Essential (primary) hypertension; R12 Heartburn; M19.90 Unspecified osteoarthritis, unspecified site; Z86.010 Personal history of colon polyps; Z88.5 Allergy status to narcotic agent; E78.00 Pure hypercholesterolemia, unspecified; Z80.0 Family history of malignant neoplasm of digestive organs; Z68.38 Body mass index [BMI] 38.0-38.9, adult; Z01.810 Encounter for preprocedural cardiovascular examination; Z01.812 Encounter for preprocedural laboratory examination; G47.33 Obstructive sleep apnea (adult) (pediatric)
CPT/HCPCS: 36415; 43239; 45380; 85025; 93005; J0461

== ENCOUNTER → 2020-11-19 | Outpatient (CLI) | payer MEDICARE, OTHER ==
[~2020-11-19] MED LIST changes: -ATROPINE SULFATE 1 MG/ML VIAL ONE; -POVIDONE IODINE 0.05% 0.05 % ML PO ONE
== END ==
LOC: MAMMO 11-12 09:00
PROVIDERS: ATTEND Internal Medicine
DX: Z12.31 Encounter for screening mammogram for malignant neoplasm of breast (principal)
CPT/HCPCS: 77067